=== PATIENT | female | born 1970 | race Asian ===

== ENCOUNTER → 2018-05-08 07:48 | Outpatient (CLI) | payer OTHER, SELFPAY ==
[2018-05-08 08:41] LABS: Add Manual Diff / Slide Review NO; Basophils Percent Auto 0.4 % (0-2); Hematocrit 35.6 % (36-46); Hemoglobin 11.3 g/dL (12.0-16.0); Lymphocytes Percent Auto 28.9 % (25-40); Mean Corpuscular HGB Conc 31.6 % (30-36); Mean Corpuscular Hemoglobin 19.9 PG (26-34); Mean Corpuscular Volume 63.1 fL (80-100); Monocytes Percent Auto 8.8 % (3-14); Neutrophils Absolute Auto 4400 /uL (3000-5900); Neutrophils Percent Auto 52.9 % (50-75); Platelet Count 357 X10^3/uL (150-400); Red Blood Cell Count 5.65 X10^6/uL (4.0-5.2); Red Cell Distribution Width 14.9 % (11.6-14.8); White Blood Cell Count 8.3 X10^3/uL (4.5-11.0)
[2018-05-08 09:07] LABS: Anisocytosis 1+; Microcytosis 2+; Poikilocytosis 1+
[2018-05-08 09:10] LABS: Alanine Aminotransferase 21 IU/L (9-52); Albumin Globulin Ratio 1.2 (1.0-2.8); Alkaline Phosphatase 47 U/L (38-126); Aspartate Aminotransferase 20 IU/L (14-36); BUN Creatinine Ratio 13.3 (6-22); Bilirubin Total 0.7 mg/dL (0.2-1.3); Blood Urea Nitrogen 8 mg/dL (7-17); Carbon Dioxide 31 mmol/L (22-32); Chloride 105 mmol/L (98-107); Cholesterol 172 mg/dL (140-199); Estimated Glomerular Filt Rate > 60.0 mL/min (>60); Globulin 3.3 g/dL (1.7-4.1); Glucose 96 mg/dL (70-100); HDL Cholesterol 54 mg/dL (40-60); HEMOLYSIS < 15 (0-50); LDL Cholesterol Calculated 91 mg/dL (<100); Potassium 4.4 mmol/L (3.4-5.1); Sodium 143 mmol/L (137-145); Total Protein 7.3 g/dL (6.3-8.2); Triglycerides 133 mg/dL (35-150)
[2018-05-08 09:35] LABS: TSH w/ Reflex to FT4 1.28 uIU/mL (0.47-4.68)
== END ==
PROVIDERS: PCP Family Medicine; Visit Provider Family Medicine
DX: Z00.00 Encounter for general adult medical examination without abnormal findings (principal)
CPT/HCPCS: 36415; 80053; 80061; 84443; 85025

== ENCOUNTER → 2018-06-09 14:45 | Outpatient (CLI) | payer OTHER, SELFPAY ==
--- NOTE | 2018-06-09 14:46 | DI.US.S_ITS ---
ULTRASOUND OF LEFT BREAST: 06/09/2018 CLINICAL: Palpable left breast lump. [facility] of the left breast was performed on the areas of interest. Ceja scale images of the real-time examination were reviewed. There is a 2.7 cm x 2.1 cm x 2.6 cm irregular cyst in the left breast at 3 o'clock anterior depth. This irregular cyst is anechoic with posterior acoustic enhancement. This correlates as palpated. IMPRESSION: BENIGN There is no sonographic evidence of malignancy. The 2.7 cm x 2.1 cm x 2.6 cm irregular cyst in the left breast is benign. A 1 year screening mammogram is recommended. This exam was interpreted at Station ID: [id number]. Electronically Signed By: Jenny Jones M.D. lk/:06/09/2018 16:23:37 letter sent: Normal Exam Ultrasound BI-RADS: 2 Benign
--- NOTE | 2018-06-09 14:46 | DI.MG.S_ITS ---
BILATERAL DIGITAL DIAGNOSTIC MAMMOGRAM 3D/2D: 06/09/2018 CLINICAL: Left lump with tenderness. Baseline. No prior exams were available for comparison. The tissue of both breasts is extremely dense, which lowers the sensitivity of mammography. There is a 2.2 cm oval mass in the left breast at 5 o'clock middle depth. This correlates as palpated. No other significant masses, calcifications, or other findings are seen in either breast. IMPRESSION: INCOMPLETE: NEEDS ADDITIONAL IMAGING EVALUATION The 2.2 cm oval mass in the left breast likely represents a cyst and is indeterminate. A targeted ultrasound of the right breast is recommended and will be performed immediately following this exam. This exam was interpreted at Station ID: [id number]. NOTE: For mammograms, a report in lay terms will be sent to the patient. Approximately 15% of breast malignancies will not be visualized mammographically. In the management of a palpable breast mass, a negative mammogram must not discourage biopsy of a clinically suspicious lesion. Electronically Signed By: Jenny Jones M.D. lk/:06/09/2018 15:26:38 letter sent: Additional Imaging Needed ACR BI-RADS Category 0: Incomplete 3340F
== END ==
PROVIDERS: Family Provider Family Medicine; PCP Family Medicine; Visit Provider Family Medicine
DX: R92.8 Other abnormal and inconclusive findings on diagnostic imaging of breast (principal); N60.02 Solitary cyst of left breast
CPT/HCPCS: 76642; 77066; G0279

== ENCOUNTER → 2019-05-18 14:38 | Outpatient (CLI) | payer OTHER, SELFPAY ==
--- NOTE | 2019-05-18 14:39 | DI.MG.S_ITS ---
BILATERAL DIGITAL DIAGNOSTIC MAMMOGRAM 3D/2D: 05/18/2019 CLINICAL: Left breast lump. Comparison is made to exam dated: 06/09/2018 [facility]. The tissue of both breasts is extremely dense, which lowers the sensitivity of mammography. There is an oval equal density cyst with an obscured and circumscribed margin in the left breast at 4 o'clock middle depth. This is not significantly changed and correlates as palpated. No other significant masses, calcifications, or other findings are seen in either breast. IMPRESSION: INCOMPLETE: NEEDS ADDITIONAL IMAGING EVALUATION The oval equal density cyst in the left breast is indeterminate. An ultrasound is recommended. This exam was interpreted at Station ID: [id number]. NOTE: For mammograms, a report in lay terms will be sent to the patient. Approximately 15% of breast malignancies will not be visualized mammographically. In the management of a palpable breast mass, a negative mammogram must not discourage biopsy of a clinically suspicious lesion. Electronically Signed By: Ren connolly/joe:05/18/2019 15:56:05 ACR BI-RADS Category 0: Incomplete 3340F
--- NOTE | 2019-05-18 14:39 | DI.US.S_ITS ---
LIMITED ULTRASOUND OF LEFT BREAST: 05/18/2019 CLINICAL: Palpable left breast lump. Comparison is made to exams dated: 05/18/2019 mammogram, 06/09/2018 ultrasound, and 06/09/2018 mammogram - [facility]. Color flow and real-time ultrasound of the left breast 3 o'clock region were performed on the areas of interest. There is a benign 3.2 cm x 3.1 cm x 2.1 cm oval cyst with a smooth internal wall in the left breast at 3 o'clock middle depth. This oval cyst is anechoic with a well-defined boundary and posterior acoustic enhancement. This abnormality is increased in size and correlates as palpated and with mammography findings. Color flow imaging demonstrates that there is no vascularity present. IMPRESSION: BENIGN There is no sonographic evidence of malignancy. The 3.2 cm x 3.1 cm x 2.1 cm oval cyst in the left breast is consistent with a simple cyst and is benign. If clinically indicated, ultrasound guided cyst aspiration may be performed for symptomatic relief. A 1 year screening mammogram is recommended. This exam was interpreted at Station ID: [id number]. Electronically Signed By: Ren Smith M.D. ddrand/:05/19/2019 08:32:50 letter sent: Clinical Evaluation Ultrasound BI-RADS: 2 Benign
== END ==
PROVIDERS: Family Provider Family Medicine; PCP Family Medicine; Visit Provider Nurse Practitioner
DX: R92.8 Other abnormal and inconclusive findings on diagnostic imaging of breast (principal); N60.02 Solitary cyst of left breast
CPT/HCPCS: 76642; 77066; G0279

== ENCOUNTER → 2020-11-15 16:44 | Outpatient (CLI) | payer OTHER, SELFPAY ==
--- NOTE | 2020-11-15 16:47 | DI.MG.S_ITS ---
BILATERAL DIGITAL SCREENING MAMMOGRAM 3D/2D WITH CAD: 11/15/2020 CLINICAL: Routine screening. Comparison is made to exams dated: 05/18/2019 mammogram and 06/09/2018 mammogram - [facility]. The tissue of both breasts is extremely dense, which lowers the sensitivity of mammography. Current study was also evaluated with a Computer Aided Detection (CAD) system. No significant masses, calcifications, or other findings are seen in either breast. There has been no significant interval change. IMPRESSION: NEGATIVE There is no mammographic evidence of malignancy. A 1 year screening mammogram is recommended. This exam was interpreted at Station ID: [id number]. NOTE: For mammograms, a report in lay terms will be sent to the patient. Approximately 15% of breast malignancies will not be visualized mammographically. In the management of a palpable breast mass, a negative mammogram must not discourage biopsy of a clinically suspicious lesion. Electronically Signed By: Dakota whitehead/joe:11/16/2020 07:44:22 letter sent: Normal Exam ACR BI-RADS Category 1: Negative 3341F
== END ==
PROVIDERS: Family Provider Family Medicine; PCP Family Medicine; Referring Provider Family Medicine; Visit Provider Family Medicine
DX: Z12.31 Encounter for screening mammogram for malignant neoplasm of breast (principal)
CPT/HCPCS: 77063; 77067

== ENCOUNTER → 2021-06-15 07:39 | Outpatient (CLI) | payer OTHER, SELFPAY ==
[2021-06-15 08:13] LABS: Add Manual Diff / Slide Review NO; Basophils Absolute Auto 100 /uL (0-100); Basophils Percent Auto 1.2 % (0-2); Eosinophils Absolute Auto 300 /uL (0-450); Eosinophils Percent Auto 5.6 % (2-4); Hematocrit 29.3 % (36-46); Hemoglobin 9.1 g/dL (12.0-16.0); Lymphocytes Absolute Auto 2000 /uL (1100-4500); Lymphocytes Percent Auto 40.1 % (25-40); Mean Corpuscular HGB Conc 31.2 % (30-36); Mean Corpuscular Hemoglobin 18.6 PG (26-34); Mean Corpuscular Volume 59.8 fL (80-100); Monocytes Absolute Auto 400 /uL (0-900); Monocytes Percent Auto 8.9 % (3-14); Neutrophils Absolute Auto 2200 /uL (1500-7000); Neutrophils Percent Auto 44.2 % (50-75); Platelet Count 408 X10^3/uL (150-400)
[2021-06-15 08:36] LABS: Hypochromasia 2+; Microcytosis 2+; Poikilocytosis 1+; Target Cells 1+
[2021-06-15 08:38] LABS: Alanine Aminotransferase 15 IU/L (<35); Albumin 4.3 g/dL (3.5-5.0); Albumin Globulin Ratio 1.5 (1.0-2.8); Alkaline Phosphatase 44 U/L (38-126); Aspartate Aminotransferase 21 IU/L (14-36); BUN Creatinine Ratio 15.5 (6-22); Bilirubin Total 0.6 mg/dL (0.2-1.3); Blood Urea Nitrogen 11 mg/dL (7-17); Calcium 9.4 mg/dL (8.4-10.2); Carbon Dioxide 28 mmol/L (22-32); Chloride 104 mmol/L (98-107); Cholesterol 207 mg/dL (140-199); Estimated Glomerular Filt Rate > 60.0 mL/min (>60); Globulin 2.9 g/dL (1.7-4.1); Glucose 102 mg/dL (70-100); HDL Cholesterol 68 mg/dL (40-60); HEMOLYSIS < 15 (0-50); LDL Cholesterol Calculated 122 mg/dL (<100); Potassium 4.3 mmol/L (3.4-5.1); Sodium 139 mmol/L (137-145); Total Protein 7.2 g/dL (6.3-8.2); Triglycerides 85 mg/dL (35-150)
== END ==
PROVIDERS: Physician Assistant; Family Provider Family Medicine; PCP Family Medicine; Referring Provider Family Medicine; Visit Provider Family Medicine
DX: D56.0 Alpha thalassemia (principal); Z13.6 Encounter for screening for cardiovascular disorders
CPT/HCPCS: 36415; 80053; 80061; 85025

== ENCOUNTER → 2021-10-20 09:13 | Outpatient (CLI) | payer OTHER, SELFPAY ==
[2021-10-20 10:06] LABS: Add Manual Diff / Slide Review NO; Basophils Absolute Auto 100 /uL (0-100); Basophils Percent Auto 1.8 % (0-2); Eosinophils Absolute Auto 300 /uL (0-450); Eosinophils Percent Auto 6.4 % (2-4); Hematocrit 27.9 % (36-46); Hemoglobin 8.6 g/dL (12.0-16.0); Lymphocytes Absolute Auto 1200 /uL (1100-4500); Lymphocytes Percent Auto 25.3 % (25-40); Mean Corpuscular Hemoglobin 19.4 PG (26-34); Mean Corpuscular Volume 62.7 fL (80-100); Monocytes Absolute Auto 400 /uL (0-900); Monocytes Percent Auto 9.8 % (3-14); Neutrophils Absolute Auto 2600 /uL (1500-7000); Neutrophils Percent Auto 56.7 % (50-75); Platelet Count 356 X10^3/uL (150-400); Red Blood Cell Count 4.45 X10^6/uL (4.0-5.2); White Blood Cell Count 4.6 X10^3/uL (4.5-11.0)
[2021-10-20 10:15] LABS: Alanine Aminotransferase 11 IU/L (<35); Albumin 3.9 g/dL (3.5-5.0); Albumin Globulin Ratio 1.3 (1.0-2.8); Alkaline Phosphatase 38 U/L (38-126); Aspartate Aminotransferase 19 IU/L (14-36); BUN Creatinine Ratio 13.2 (6-22); Bilirubin Total 0.7 mg/dL (0.2-1.3); Blood Urea Nitrogen 7 mg/dL (7-17); Calcium 8.8 mg/dL (8.4-10.2); Carbon Dioxide 29 mmol/L (22-32); Chloride 108 mmol/L (98-107); Cholesterol 150 mg/dL (140-199); Estimated Glomerular Filt Rate > 60.0 mL/min (>60); Globulin 2.9 g/dL (1.7-4.1); Glucose 104 mg/dL (70-100); HDL Cholesterol 48 mg/dL (40-60); HEMOLYSIS < 15 (0-50); LDL Cholesterol Calculated 84 mg/dL (<100); Potassium 4.2 mmol/L (3.4-5.1); Sodium 139 mmol/L (137-145); Total Protein 6.8 g/dL (6.3-8.2); Triglycerides 92 mg/dL (35-150)
[2021-10-20 10:44] LABS: Anisocytosis 1+; Hypochromasia 2+; Microcytosis 2+; Ovalocytes 1+
[2021-10-20 10:47] LABS: Thyroid Stimulating Hormone < 0.015 uIU/mL (0.47-4.68)
[2021-10-22 17:19] LABS: Ferritin 26 ng/mL (6-137)
== END ==
PROVIDERS: PCP Family Medicine; Referring Provider Family Medicine; Visit Provider Family Medicine
DX: D50.9 Iron deficiency anemia, unspecified (principal); N92.0 Excessive and frequent menstruation with regular cycle; R53.83 Other fatigue
CPT/HCPCS: 36415; 80053; 80061; 82728; 84443; 85025

== ENCOUNTER 2021-11-07 14:16 | Emergency (ER) | payer OTHER, SELFPAY ==
[2021-11-07 14:20] VITALS: BP 126/79; PULSE 86; RESP 18; TEMP 36.6; O2SAT 99; BMI 24.5
[2021-11-07 14:48] LABS: Add Manual Diff / Slide Review NO; Basophils Absolute Auto 0 /uL (0-100); Basophils Percent Auto 0.7 % (0-2); Eosinophils Absolute Auto 200 /uL (0-450); Eosinophils Percent Auto 4.2 % (2-4); Hematocrit 29.7 % (36-46); Hemoglobin 9.4 g/dL (12.0-16.0); Lymphocytes Absolute Auto 1500 /uL (1100-4500); Lymphocytes Percent Auto 25.8 % (25-40); Mean Corpuscular HGB Conc 31.8 % (30-36); Mean Corpuscular Hemoglobin 19.8 PG (26-34); Mean Corpuscular Volume 62.4 fL (80-100); Monocytes Absolute Auto 400 /uL (0-900); Monocytes Percent Auto 7.8 % (3-14); Neutrophils Absolute Auto 3500 /uL (1500-7000); Neutrophils Percent Auto 61.5 % (50-75); Platelet Count 384 X10^3/uL (150-400); Red Blood Cell Count 4.75 X10^6/uL (4.0-5.2); Red Cell Distribution Width 16.4 % (11.6-14.8); White Blood Cell Count 5.7 X10^3/uL (4.5-11.0)
[2021-11-07 14:49] LABS: Appearance Urine UA SL CLOUDY; Bilirubin Urine UA NEGATIVE (NEGATIVE); Color Urine UA YELLOW; Glucose Urine UA NEGATIVE (Negative); Ketones Urine UA NEGATIVE (NEGATIVE); Leukocyte Esterase Urine UA TRACE (NEGATIVE); Nitrite Urine UA NEGATIVE (Negative); Occult Blood Urine UA 3+ (Negative); Protein Urine UA 1+ (Negative); Specific Gravity Urine UA 1.015 (1.000-1.035); Urobilinogen Urine UA 0.2 E.U./dL (0.2)
[2021-11-07 14:56] LABS: RBC Urine 30-100/HPF (0-5/HPF)
[2021-11-07 14:57] LABS: Bacteria Urine None Seen; Culture Indicated Urine Specimen Cultured; Squamous Epithelial Cell Urine 0-1 /HPF (0-5/HPF); WBC Urine 1-5/HPF (0-5/HPF)
[2021-11-07 14:58] LABS: BUN Creatinine Ratio 15.3 (6-22); Blood Urea Nitrogen 9 mg/dL (7-17); Calcium 8.7 mg/dL (8.4-10.2); Carbon Dioxide 26 mmol/L (22-32); Chloride 104 mmol/L (98-107); Estimated Glomerular Filt Rate > 60.0 mL/min (>60); Glucose 129 mg/dL (70-100); HEMOLYSIS < 15 (0-50); Potassium 3.5 mmol/L (3.4-5.1); Sodium 137 mmol/L (137-145)
[2021-11-07 15:15] LABS: Hypochromasia 2+; Microcytosis 2+
--- NOTE | 2021-11-07 15:43 | DI.US.S_ITS ---
PROCEDURE: US PELVIC COMPLETE INDICATIONS: EXCESSIVE VAGINAL BLEEDING TECHNIQUE: Real-time scanning was performed of the pelvic organs, with image documentation. Additional endovaginal scanning was necessary due to incomplete visualization of the adnexal and endometrial structures by transabdominal scanning. COMPARISON: None. FINDINGS: Uterus: Uterus is retroverted and normal in size at 8.6 x 5.1 x 7.9 cm. The endometrial stripe is poorly defined and measures approximately 10 mm in thickness. Hypoechoic uterine lesions are seen, which are attributed to fibroids. They measure as follows: Right anterior uterus, subserosal, 1.3 x 1.5 x 1.1 cm Mid uterus, intramural, 1.2 x 1.8 x 1.3 cm Ovaries: The right ovary measures 3.9 x 3.1 x 2.5 cm and demonstrates physiologic appearing cysts. There is also a 1.6 cm partially calcified region the right ovary. The left ovary measures 2.5 x 1.3 x 1.3 cm. The left ovary is overall not well seen, secondary to overlying bowel gas. No adnexal masses are seen. Normal appearing arterial waveforms are confirmed to each ovary. Other: A mild amount of free pelvic fluid is seen, which is considered to be within physiologic limits. IMPRESSION: Defined endometrial stripe. Please consider adenomyosis. There is an apparent partially calcified region within the right ovary that measures up to 16 mm. When clinically appropriate, please consider a follow-up gynecological protocol MRI for further evaluation (assuming that there is no contraindication). We strive to produce accurate, complete, and clear reports of imaging services. To assist us in improving patient care, this report was composed using standard report templates and voice recognition software. Therefore, it may contain abnormal punctuation, insertions and/or omissions. Occasional wrong-word or sound-alike substitutions may occur. Though we review the report and make efforts to correct it, we do recommend that the report be read carefully in proper context to recognize any text inaccuracies. Dictated by: Baldemar Carrion M.D. on 11/07/2021 at 16:05 Approved by: Baldemar Carrion M.D. on 11/07/2021 at 16:08
--- NOTE | 2021-11-07 15:44 | ED_ITS ---
HPI - General Adult General Chief complaint: Vaginal Bleeding Stated complaint: excessive vaginal bleeding Time Seen by Provider: 11/07/21 15:36 Source: patient Mode of arrival: Ambulatory History of Present Illness HPI narrative: 51-year-old female who is here for evaluation of approximately 2 days of vaginal bleeding. She states she has been soaking through a tampon every couple hours. She does have a history of iron deficiency anemia. She is currently on iron. She is scheduled to see a systems checkout mechanic tomorrow to discuss potential iron infusions. Over the past 2 year she has been somewhat irregular with her menstrual cycles. She is not currently on control. No urinary symptoms. No fevers. Related Data Home Medications Medication Instructions Recorded Confirmed magnesium oxide 400 mg (241.3 mg 400 mg PO DAILY tab 05/14/18 11/06/21 magnesium) tablet ibuprofen 200 mg tablet 400 mg PO Q6H PRN 07/24/21 11/06/21 cholecalciferol (vitamin D3) 25 PO DAILY 09/03/21 11/06/21 mcg (1,000 unit) tablet (Vitamin D3) Previous Rx's Medication Instructions Recorded alprazolam 0.5 mg tablet 0.25 mg PO DAILY #10 tab 06/20/21 zolpidem 5 mg tablet (Ambien) 5 mg PO BEDTIME PRN #30 tab 06/20/21 ferrous sulfate 325 mg (65 mg 325 mg PO TID #90 tab 07/24/21 iron) tablet Allergies Allergy/AdvReac Type Severity Reaction Status Date / Time diazepam [DIAZEPAM] AdvReac Mild NAUSEA Verified 11/07/21 14:26 Review of Systems Constitutional Constitutional: Reports as per HPI and Reports system reviewed and no additional complaints, except as documented Gastrointestinal Gastrointestinal: Reports as per HPI and Reports system reviewed and no ad ditional complaints, except as documented Genitourinary Genitourinary: Reports system reviewed and no additional complaints, except as documented Integumentary/Breasts Skin/Breast: Reports system reviewed and no additional complaints, except as documented Neurologic Neurologic: Reports system reviewed and no additional complaints, except as documented Hematologic/Lymphatic On Anticoagulants: No Patient History Medical History Anxiety (~2006) Chicken pox (~1993) Vertigo (~2015) Surgical History (Updated 07/03/21 @ 10:32 by Calvin Sims MD) Anesthesia History of third molar tooth extraction (~1991) Family History Mother No problems noted. Social History marital status: Smoking Status: Never smoker alcohol intake: current (on occasion) Smoking Status: Never smoker alcohol intake frequency: 3 or more drinks per day Substance Use Type: does not use Exam Initial Vital Signs Initial Vital Signs: Vital Signs Temperature 97.9 F 11/07/21 14:20 Pulse Rate 86 11/07/21 14:20 Respiratory Rate 18 11/07/21 14:20 Blood Pressure 126/79 11/07/21 14:20 Pulse Oximetry 99 11/07/21 14:20 HENMT Head: normal to inspection and normocephalic Resp Effort & Inspection: normal respiratory effort Cardio Rate: regular rate GI Inspection: normal to inspection, non-distended and no incisions Skin General: no rashes or lesions noted Neuro General: patient alert, patient awake, patient oriented x3 and moves all extremities Course Orders Ordered: ED Orders 11/07/21 14:30 Urinalysis and Microscopic Stat Urine Culture Stat 11/07/21 14:40 Basic Metabolic Panel Stat Complete Blood Count AUTO DIFF Stat 11/07/21 15:43 US pelvic complete Stat Vital Signs Vital signs: Vital Signs - 8 hr 11/07/21 14:20 11/07/21 17:35 Temperature 97.9 F Pulse Rate 86 74 Respiratory Rate 18 18 Blood Pressure 126/79 120/75 Pulse Oximetry 99 99 Medical Decision Making Medical Records Medical records reviewed: Yes I reviewed the patient's medical records. Lab Data Lab results reviewed: Yes I reviewed the patient's lab results. Result diagrams: 11/07/21 14:40 11/07/21 14:40 Labs: Lab Results 11/07/21 11/07/21 11/07/21 Range/Units 14:30 14:40 14:40 WBC 5.7 (4.5-11.0) X10^3/uL RBC 4.75 (4.0-5.2) X10^6/uL Hgb 9.4 L (12.0-16.0) g/dL Hct 29.7 L (36-46) % MCV 62.4 L (80-100) fL MCH 19.8 L (26-34) PG MCHC 31.8 (30-36) % RDW 16.4 H (11.6-14.8) % Plt Count 384 (150-400) X10^3/uL Neut % (Auto) 61.5 (50-75) % Lymph % (Auto) 25.8 (25-40) % [place] % (Auto) 7.8 (3-14) % Eos % (Auto) 4.2 H (2-4) % Baso % (Auto) 0.7 (0-2) % Neut # (Auto) 3500 (5322-2455) /uL Lymph # (Auto) 1500 (4251-0781) /uL [place] # (Auto) 400 (0-900) /uL Eos # (Auto) 200 (0-450) /uL Baso # (Auto) 0 (0-100) /uL RBC Morphology Not Reportable Hypochromasia 2+ H Microcytosis 2+ H Sodium 137 (137-145) mmol/L Potassium 3.5 (3.4-5.1) mmol/L Chloride 104 (98-107) mmol/L Carbon Dioxide 26 (22-32) mmol/L BUN 9 (7-17) mg/dL Creatinine 0.59 (0.52-1.04) mg/dL Estimated GFR > 60.0 (>60) mL/min BUN/Creatinine Ratio 15.3 (6-22) Glucose 129 H (70-100) mg/dL Calcium 8.7 (8.4-10.2) mg/dL Urine Color Yellow Urine Appearance Sl cloudy Urine pH 6.0 (4.5-8.0) Ur Specific [place] 1.015 (1.000-1.035) Urine Protein 1+ H (Negative) Urine Glucose (UA) Negative (Negative) g/dL Urine Ketones Negative (NEGATIVE) Urine Occult Blood 3+ H (Negative) Urine Nitrate Negative (Negative) Urine Bilirubin Negative (NEGATIVE) Urine Urobilinogen 0.2 (0.2) E.U./dL Ur Leukocyte Esterase Trace H (NEGATIVE) Urine RBC 30-100/hpf H (0-5/HPF) Urine WBC 1-5/hpf (0-5/HPF) Ur Squamous Epith Cells 0-1 /hpf (0-5/HPF) Urine Bacteria None seen (None) Ur Culture Indicated? Specimen cultured Point of Care Testing Test Results Negative Point of care testing: Point of Care Testing Test Results Negative Imaging Data US - FILM READER: Radiologist's Impression: [address] [address] Ultrasound Report Signed Patient: Madan Hui MR#: [id number] : 1970 Acct:[id number] Age/Sex: 51 / F Date of Service: 11/07/21 Loc: ED Accession Number: [id number] ?? Procedure: US pelvic complete Ordering Provider: Bob Herrera D.O. PROCEDURE:? US PELVIC COMPLETE ? INDICATIONS:? EXCESSIVE VAGINAL BLEEDING ? TECHNIQUE:? Real-time scanning was performed of the pelvic organs, with image documentation.? Additional endovaginal scanning was necessary due to incomplete visualization of the adnexal and endometrial structures by transabdominal scanning.? ? COMPARISON:? None. ? FINDINGS:? ?? Uterus:? Uterus is retroverted and normal in size at 8.6 x 5.1 x 7.9 cm. ? The endometrial stripe is poorly defined and measures approximately 10 mm in thick ness. Hypoechoic uterine lesions are seen, which are attributed to fibroids. They measure as follows: ? Right anterior uterus, subserosal, 1.3 x 1.5 x 1.1 cm Mid uterus, intramural, 1.2 x 1.8 x 1.3 cm ? Ovaries:? The right ovary measures 3.9 x 3.1 x 2.5 cm and demonstrates physiologic appearing cysts.? There is also a 1.6 cm partially calcified region the right ovary.? ? The left ovary measures 2.5 x 1.3 x 1.3 cm.? The left ovary is overall not well seen, secondary to overlying bowel gas. ? No adnexal masses are seen. Normal appearing arterial waveforms are confirmed to each ovary.? ? Other:? A mild amount of free pelvic fluid is seen, which is considered to be within physiologic limits.? ? ? IMPRESSION:? Defined endometrial stripe.? Please consider adenomyosis. ? There is an apparent partially calcified region within the right ovary that measures up to 16 mm. ? When clinically appropriate, please consider a follow-up gynecological protocol MRI for further evaluation (assuming that there is no contraindication).? ? ? We strive to produce accurate, complete, and clear reports of imaging services. To assist us in improving patient care, this report was composed using standard report templates and voice recognition software. Therefore, it may contain abnormal punctuation, insertions and/or omissions. Occasional wrong-word or sound-alike substitutions may occur. Though we review the report and make efforts to correct it, we do recommend that the report be read carefully in proper context to recognize any text inaccuracies. ? ? Dictated by: Baldemar Carrion M.D. on 11/07/2021 at 16:05 ? ? Approved by: Baldemar Carrion M.D. on 11/07/2021 at 16:08? MDM Narrative Medical decision making narrative: Patient is anemic but not to the point where she would require transfusion. Exam unremarkable. Ultrasound shows fibroids and other findings that could be consistent with because of her presenting symptoms today. We did discuss starting on control for hormone regulation over the patient would like to hold on this for now. Will have her continue to keep her appointment with Hematology tomorrow. She was given return precautions. She expressed understanding and agreement. Discharge Plan Departure Patient Disposition: Home Clinical Impression: Vaginal bleeding Instructions: DI for Vaginal Bleeding Activity Restrictions/Additional Instructions: Do recommend that you continue to take all of your medications as directed and keep all of your scheduled medical appointments. Please return to the emergency department for any new or worsening symptoms. Prescriptions: No Action alprazolam 0.5 mg tablet 0.25 mg PO DAILY Qty: 10 0RF Rx Instructions: 1/2 to 1 tab by mouth once as needed for anxiety related to flying, MR x1 if ineffective. zolpidem [Ambien] 5 mg tablet 5 mg PO BEDTIME PRN (Reason: insomnia) Qty: 30 0RF magnesium oxide 400 mg tablet 400 mg PO DAILY 0RF ibuprofen 200 mg Tablet 400 mg PO Q6H PRN (Reason: Pain (Scale Score 4-6)) 0RF ferrous sulfate 325 mg (65 mg iron) Tablet 325 mg PO TID Qty: 90 1RF cholecalciferol (vitamin D3) [Vitamin D3] 25 mcg (1,000 unit) Tablet PO DAILY 0RF Referrals: Gabe Gamble MD [Primary Care Provider] -
[2021-11-07 17:35] VITALS: BP 120/75; PULSE 74; RESP 18; O2SAT 99
== END 2021-11-07 17:36 | disposition home or self-care (01) ==
PROVIDERS: Emergency Provider Emergency Medicine; PCP Family Medicine
DX: N93.9 Abnormal uterine and vaginal bleeding, unspecified (principal); D64.9 Anemia, unspecified
CPT/HCPCS: 36415; 76830; 76856; 80048; 81001; 81025; 85025; 87077; 87086; 99283; 99284

== ENCOUNTER → 2022-02-14 14:39 | Outpatient (CLI) | payer OTHER, SELFPAY ==
[2022-02-14 16:17] LABS: COVID19 -Nasal RAPID Negative (Negative)
== END ==
PROVIDERS: PCP Family Medicine; Visit Provider Obstetrics & Gynecology
DX: Z20.822 Contact with and (suspected) exposure to COVID-19 (principal); Z01.812 Encounter for preprocedural laboratory examination
CPT/HCPCS: 87635

== ENCOUNTER 2022-02-15 10:36 | Day surgery (SDC) | payer OTHER, SELFPAY ==
[2022-02-14 13:06] VITALS: BMI 24.5
[2022-02-15] VITALS (7 sets, daily range): BP systolic 116–139; BP diastolic 74–87; PULSE 46–84; RESP 12–18; TEMP 36.2–36.3; O2SAT 100; BMI 24.5
[2022-02-15] MEDS: LACTATED RINGERS 1,000 ML 100 ML IV (10:59)
--- NOTE | 2022-02-15 11:13 | PM.PREOP ---
Pre-operative Note COVID-19 COVID-19 status: Negative Result date/Date tested (Pos, Neg/Pending): 02/14/22 Criteria for continued procedure: Non-surgical alternatives not available or appropriate per current SOC Interval Note History & Physical reviewed/Exam performed by Physician: Yes Changes to H&P: No
--- NOTE | 2022-02-15 11:47 | SUR.OPER ---
Lithotomy on padded OR bed, head on pillow, arms secured on padded arm boards at <90 degrees abduction. Legs secured in padded yellow fins stirrups.
--- NOTE | 2022-02-15 12:37 | PM.OP.1 ---
Operative Date/Time/Diagnoses Date of procedure: 02/15/22 Time of procedure: 12:00 Pre-op diagnosis: menorrhagia Post-op diagnosis: same Procedure & Clinicians Procedure: diagnostic hysteroscopy, Novasure endometrial ablation Same procedure as scheduled: No (hysteroscopy added) Indications: menorrhagia Surgeon: Emma Harman Supervisor Hot Dip Plating: Ledy Lund Anesthesia Type: Sedation Operative Notes Findings: Retroverted, retroflexed, mildly arcuate uterus. Normal vulva and vagina, normal cervix. Specimen(s): none sent Estimated Blood Loss (mL): 20 Procedure in detail: After informed consent was obtained and a test was negative, the patient was transferred to the operating room having voided en route. IV sedation was obtained. She was prepped and draped in the usual sterile fashion. A speculum was placed in the vagina, and the cervix visualized and grasped on the anterior lip with a single toothed tenaculum. Hegar dilators were used to dilate the cervix to 8mm, but with significant difficulty dilating the internal os. The decision was made to proceed with a diagnostic hysteroscopy, but since only an operative hysteroscope was available, the cervix was further dilated to 10mm with difficulty after the hysteroscope could not be advanced through the internal os. A hysteroscopy could be performed after this additional dilation. Both ostia were visualized with a mildly arcuate fundus noted, with no signs of uterine perforation. The novasure sound was then used to measure the uterine cavity to 4cm. The Novasure device was inserted through the cervix, now with ease given the prior dilation, and advanced to the fundus. It was then deployed in the usual fashion, the speculum removed, and the device rotated, withdrawn 0.5cm and re-advanced to ensure proper seating. A cavity assessment was performed and passed. The endometrial ablation was then successfully performed. The Novasure was withdrawn and removed from the uterus, and the tenaculum removed with spontaneous hemostasis noted. The patient tolerated the procedure well and was taken to the PACU in stable condition. All counts were correct. IVF: 800ccs LR Cavity length: 4cm Cavity width: 2.5cm power level 55W Ablation time: 68 seconds Complications: none Post-operative Condition: stable Disposition: PACU Plan for aftercare: Routine postop care.
--- NOTE | 2022-02-15 13:27 | SUR.PHASEII ---
Pt dressed, ready to go, became nauseated, VS taken, HR low, Dr. Null made aware.
[2022-02-15] MEDS: ONDANSETRON 4 MG ODT SL (13:33)
--- NOTE | 2022-02-15 14:29 | SUR.PHASEII ---
Late entry: Pt medicated with Ondansetron ODT. Pt felt better soon after, Dr. Zhang and Dr. Harman spoke with pt at bedside. Pt felt better an left unit in stable condition.
== END 2022-02-15 13:50 | disposition home or self-care (01) ==
PROVIDERS: PCP Family Medicine; Referring Provider Obstetrics & Gynecology; Visit Provider Obstetrics & Gynecology
PROC: 0U5B8ZZ Destruction of Endometrium, Via Natural or Artificial Opening Endoscopic (ICD-10-PCS; CPT 58563; principal; 2022-02-15 12:00)
DX: N92.0 Excessive and frequent menstruation with regular cycle (principal)
CPT/HCPCS: 58563; 81025; 82962; J1100; J1885; J2250; J2405; J2704; J3010

== ENCOUNTER → 2022-07-25 14:26 | Outpatient (CLI) | payer OTHER, SELFPAY ==
--- NOTE | 2022-07-25 | DI.MG.S_ITS ---
BILATERAL DIGITAL SCREENING MAMMOGRAM 3D/2D WITH CAD: 07/25/2022 CLINICAL: Routine screening. Comparison is made to exams dated: 11/15/2020 mammogram, 05/18/2019 mammogram, and 06/09/2018 mammogram - [facility]. Both breasts are extremely dense, which lowers the sensitivity of mammography (category d />75% glandular tissue). Current study was also evaluated with a Computer Aided Detection (CAD) system. No significant masses, calcifications, or other findings are seen in either breast. There has been no significant interval change. IMPRESSION: NEGATIVE There is no mammographic evidence of malignancy. A 1 year screening mammogram is recommended. Based on the Tyrer Cuzick model (a risk assessment model) the patient's lifetime risk is 14.8% and her 10 year risk is 3.4%. According to the ACR, ACS, and NCCN guidelines, an annual breast MRI exam along with mammogram is recommended if the patient's lifetime risk is 20% or greater. This exam was interpreted at Station ID: [id number]. NOTE: For mammograms, a report in lay terms will be sent to the patient. Approximately 15% of breast malignancies will not be visualized mammographically. In the management of a palpable breast mass, a negative mammogram must not discourage biopsy of a clinically suspicious lesion. Electronically Signed By: Dakota whitehead/joe:07/25/2022 15:07:04 letter sent: Normal Exam ACR BI-RADS Category 1: Negative 3341F
== END ==
PROVIDERS: PCP Family Medicine; Referring Provider Family Medicine; Visit Provider Family Medicine
DX: Z12.31 Encounter for screening mammogram for malignant neoplasm of breast (principal)
CPT/HCPCS: 77063; 77067

== ENCOUNTER → 2022-08-21 11:25 | Outpatient (CLI) | payer OTHER, SELFPAY ==
[2022-08-21 14:01] LABS: COVID19 -Nasal RAPID Negative (Negative)
== END ==
PROVIDERS: PCP Family Medicine; Visit Provider Surgery
DX: Z20.822 Contact with and (suspected) exposure to COVID-19 (principal); Z01.812 Encounter for preprocedural laboratory examination
CPT/HCPCS: 87635; C9803

== ENCOUNTER 2022-08-22 10:51 | Day surgery (SDC) | payer OTHER, SELFPAY ==
[2022-08-22 11:07] VITALS: BP 117/76; PULSE 67; RESP 16; TEMP 36.2; O2SAT 97; BMI 24.3
[2022-08-22] MEDS: LACTATED RINGERS 1,000 ML 84 ML IV (11:20)
--- NOTE | 2022-08-22 12:17 | P.HP_ITS ---
History of Present Illness History of Present Illness Date Patient Seen: 08/22/22 Time Patient Seen: 12:17 Chief complaint: SCREENING COLONOSCOPY Narrative: Alize is here for her colonoscopy. See prior office note for details. She has had no changes to her health since I saw her last. Patient History Medical History Anxiety (~2006) Chicken pox (~1993) (normal spontaneous vaginal delivery) Vertigo (~2015) Surgical History Anesthesia History of third molar tooth extraction (~1991) Family & Social History Family History Mother No problems noted. Social History: household members none Tobacco & Substance use: Smoking Status Never smoker alcohol intake current alcohol intake frequency a few times a week Substance Use Type does not use Meds Home Medications and Allergies Home Medications Medication Instructions Recorded Confirmed Type magnesium oxide 400 mg (241.3 mg 400 mg PO DAILY 05/14/18 08/22/22 History magnesium) tablet ibuprofen 200 mg tablet 400 mg PO Q6H PRN Pain (Scale 07/24/21 08/22/22 History Score 4-6) cholecalciferol (vitamin D3) 25 1,000 unit PO DAILY 09/03/21 08/22/22 History mcg (1,000 unit) tablet (Vitamin D3) alprazolam 0.5 mg tablet 0.25 mg PO DAILY #10 tabs 11/08/21 08/22/22 Rx tranexamic acid 650 mg tablet 1,300 mg PO TID 5 days #30 tabs 11/09/21 08/22/22 Rx zolpidem 5 mg tablet (Ambien) 5 mg PO BEDTIME PRN 12/10/21 08/22/22 Rx insomnia/verbal OK 12/20/21 [facility] #30 tabs sodium sul 1.479 gram-potas ch See Rx Instructions PO PER PKG DIR 07/17/22 08/22/22 Rx 0.188 gram-magnes sul 0.225 gram #24 tabs tablet (Sutab) Allergies Allergy/AdvReac Type Severity Reaction Status Date / Time diazepam [DIAZEPAM] AdvReac Mild NAUSEA Verified 08/22/22 11:03 Exam Vital Signs (past 8 hours): - 08/22/22 11:07 Temperature 97.2 F L Pulse Rate 67 Respiratory Rate 16 Blood Pressure 117/76 Pulse Oximetry 97 Oxygen Delivery Method Room Air Oxygen Delivery Method Room Air Const General: healthy appearing Assessment & Plan Assessment and plan (1) Colon cancer screening: Status: Acute Plan Reviewed the risks and benefits of colonoscopy and she would like to proceed. Time Spent With Patient Critical Care time: I spent a total of [] minutes of critical care time on this patient's care today; this time is exclusive of procedural time.
[2022-08-22 12:48] VITALS: BP 104/66; PULSE 79; RESP 16; TEMP 36.6; O2SAT 98
--- NOTE | 2022-08-22 12:48 | PM.OP.COLON ---
Operative Date/Time/Diagnoses Date of procedure: 08/22/22 Time of procedure: 12:48 Pre-op diagnosis: Colon cancer screening Post-op diagnosis: same Procedure & Clinicians Study performed: Colonoscopy Same procedure as scheduled: Yes Surgeon: Parth Marcus Procedure Notes Procedure in detail: Surgeon: Parth Marcus MD Anesthesia: Alex Trujillo MD Procedure: The patient was brought to the endoscopy suite, placed in left lateral decubitus position. The patient was connected to monitoring devices. A time-out was performed. Sedation was administered. Once the patient was adequately sedated, a digital rectal exam was performed and was normal. The scope was then inserted and advanced to the cecum where the appendiceal orifice was identified and photographed. The scope was then slowly withdrawn over greater than 6 minutes. The mucosa was thoroughly inspected. No abnormalities were noted. The scope was retroflexed in the rectum. No abnormalities noted. The scope was straightened and removed. The patient was awakened and brought to recovery. Scope withdrawal time: 6 minutes Sedation time: 17 minutes EBL: 0 Findings: Normal colon Post-procedure Recommendations: Colonoscopy in 10 years Disposition: PACU
[2022-08-22 12:58] VITALS: BP 113/67; PULSE 60; RESP 12; TEMP 36.8; O2SAT 100
[2022-08-22 13:03] VITALS: BP 122/73; PULSE 64; RESP 14; TEMP 36.7; O2SAT 100
[2022-08-22 13:11] VITALS: BP 98/60; PULSE 69; RESP 14; TEMP 36.9; O2SAT 99
[2022-08-22 13:26] VITALS: BP 119/69; PULSE 63; RESP 14; TEMP 36.9; O2SAT 100
== END 2022-08-22 13:59 | disposition home or self-care (01) ==
PROVIDERS: PCP Family Medicine; Referring Provider Surgery; Visit Provider Surgery
PROC: 0DJD8ZZ Inspection of Lower Intestinal Tract, Via Natural or Artificial Opening Endoscopic (ICD-10-PCS; CPT 45378; principal; 2022-08-22 10:30)
DX: Z12.11 Encounter for screening for malignant neoplasm of colon (principal)
CPT/HCPCS: 45378

== ENCOUNTER → 2023-07-28 14:57 | Outpatient (CLI) | payer OTHER, SELFPAY ==
--- NOTE | 2023-07-28 14:59 | DI.MG.S_ITS ---
BILATERAL DIGITAL SCREENING MAMMOGRAM 3D/2D WITH CAD: 07/28/2023 CLINICAL: Routine screening. Comparison is made to exams dated: 07/25/2022 mammogram, 11/15/2020 mammogram, and 05/18/2019 [facility]. Both breasts are extremely dense, which lowers the sensitivity of mammography (category d />75% glandular tissue). Current study was also evaluated with a Computer Aided Detection (CAD) system. No significant masses, calcifications, or other findings are seen in either breast. There has been no significant interval change. IMPRESSION: NEGATIVE There is no mammographic evidence of malignancy. A 1 year screening mammogram is recommended. Based on the Tyrer Cuzick model (a risk assessment model) the patient's lifetime risk is 14.7% and her 10 year risk is 3.5%. According to the ACR, ACS, and NCCN guidelines, an annual breast MRI exam along with mammogram is recommended if the patient's lifetime risk is 20% or greater. This exam was interpreted at Station ID: [id number]. NOTE: For mammograms, a report in lay terms will be sent to the patient. Approximately 15% of breast malignancies will not be visualized mammographically. In the management of a palpable breast mass, a negative mammogram must not discourage biopsy of a clinically suspicious lesion. Electronically Signed By: Maria De Jesus eller/joe:07/29/2023 12:07:44 letter sent: Normal Exam ACR BI-RADS Category 1: Negative [id number]
== END ==
PROVIDERS: PCP Family Medicine; Referring Provider Family Medicine; Visit Provider Family Medicine
DX: Z12.31 Encounter for screening mammogram for malignant neoplasm of breast (principal)
CPT/HCPCS: 77063; 77067

== ENCOUNTER → 2023-10-29 08:43 | Outpatient (CLI) | payer OTHER, SELFPAY ==
[2023-10-29 10:10] LABS: Cholesterol 197 mg/dL (140-199); HDL Cholesterol 54 mg/dL (40-60); LDL Cholesterol Calculated 124 mg/dL (<100); Triglycerides 94 mg/dL (35-150)
[2023-10-29 10:27] LABS: Follicle Stimulating Hormone 78.2 mIU/mL; Luteinizing Hormone 48.3 mIU/mL
[2023-10-29 10:40] LABS: TSH w/ Reflex to FT4 1.29 uIU/mL (0.47-4.68)
[2023-10-29 10:43] LABS: Estradiol, Total 29.9 pg/mL
[2023-10-29 10:45] LABS: Ferritin 98 ng/mL (11-264)
== END ==
PROVIDERS: PCP Family Medicine; Referring Provider Family Medicine; Visit Provider Family Medicine
DX: D50.9 Iron deficiency anemia, unspecified (principal); D56.0 Alpha thalassemia; N95.9 Unspecified menopausal and perimenopausal disorder
CPT/HCPCS: 36415; 80061; 82670; 82728; 83001; 83002; 84443

== ENCOUNTER → 2024-10-15 08:27 | Outpatient (CLI) | payer OTHER, SELFPAY ==
[2024-10-15 09:51] LABS: Add Manual Diff / Slide Review NO; Basophils Absolute Auto 0 /uL (0-100); Basophils Percent Auto 0.7 % (0-2); Eosinophils Absolute Auto 200 /uL (0-450); Hematocrit 32.2 % (36-46); Hemoglobin 10.1 g/dL (12.0-16.0); Lymphocytes Absolute Auto 1500 /uL (1100-4500); Lymphocytes Percent Auto 38.1 % (25-40); Mean Corpuscular HGB Conc 31.4 % (30-36); Mean Corpuscular Hemoglobin 18.9 PG (26-34); Mean Corpuscular Volume 60.4 fL (80-100); Monocytes Absolute Auto 300 /uL (0-900); Monocytes Percent Auto 7.8 % (3-14); Neutrophils Absolute Auto 2000 /uL (1500-7000); Neutrophils Percent Auto 48.4 % (50-75); Platelet Count 325 X10^3/uL (150-400); Red Blood Cell Count 5.33 X10^6/uL (4.0-5.2); Red Cell Distribution Width 15.6 % (11.6-14.8); White Blood Cell Count 4.1 X10^3/uL (4.5-11.0)
[2024-10-15 10:01] LABS: Anisocytosis 1+; Poikilocytosis 1+
[2024-10-15 10:10] LABS: Alanine Aminotransferase 12 IU/L (<35); Albumin 4.1 g/dL (3.5-5.0); Albumin Globulin Ratio 1.6 (1.0-2.8); Alkaline Phosphatase 46 U/L (38-126); Aspartate Aminotransferase 18 IU/L (14-36); BUN Creatinine Ratio 16.7 (6-22); Bilirubin Total 0.6 mg/dL (0.2-1.3); Blood Urea Nitrogen 10 mg/dL (7-17); Carbon Dioxide 24 mmol/L (22-32); Chloride 106 mmol/L (98-107); Cholesterol 191 mg/dL (140-199); Estimated Glomerular Filt Rate > 60 mL/min (>60); Globulin 2.6 g/dL (1.7-4.1); Glucose 97 mg/dL (70-100); HDL Cholesterol 51 mg/dL (40-60); HEMOLYSIS < 15 (0-50); LDL Cholesterol Calculated 130 mg/dL (<100); Potassium 4.2 mmol/L (3.4-5.1); Sodium 139 mmol/L (137-145); Total Protein 6.7 g/dL (6.3-8.2); Triglycerides 48 mg/dL (35-150)
[2024-10-15 10:40] LABS: TSH w/ Reflex to FT4 0.94 uIU/mL (0.47-4.68)
[2024-10-15 10:45] LABS: Ferritin 108 ng/mL (11-264)
--- NOTE | 2024-10-15 15:10 | DI.MG.S_ITS ---
BILATERAL DIGITAL SCREENING MAMMOGRAM 3D/2D WITH CAD: 10/15/2024 CLINICAL: Routine screening. Comparison is made to exams dated: 07/28/2023 mammogram, 07/25/2022 mammogram, and 11/15/2020 mammogram - [facility]. The breasts are extremely dense, which lowers the sensitivity of mammography (category d />75% glandular tissue). Current study was also evaluated with a Computer Aided Detection (CAD) system. No significant masses, calcifications, or other findings are seen in either breast. There has been no significant interval change. IMPRESSION: NEGATIVE There is no mammographic evidence of malignancy. A 1 year screening mammogram is recommended. Based on the Tyrer Cuzick model (a risk assessment model) the patient's lifetime risk is 14.5% and her 10 year risk is 3.8%. According to the ACR, ACS, and NCCN guidelines, an annual breast MRI exam along with mammogram is recommended if the patient's lifetime risk is 20% or greater. This exam was interpreted at Station ID: [id number]. NOTE: For mammograms, a report in lay terms will be sent to the patient. Approximately 15% of breast malignancies will not be visualized mammographically. In the management of a palpable breast mass, a negative mammogram must not discourage biopsy of a clinically suspicious lesion. Electronically Signed By: Dakota whitehead/joe:10/15/2024 16:03:19 letter sent: Normal Exam ACR BI-RADS Category 1: Negative
== END ==
PROVIDERS: PCP Family Medicine; Referring Provider Physician Assistant; Visit Provider Physician Assistant
DX: Z12.31 Encounter for screening mammogram for malignant neoplasm of breast (principal); R92.343 Mammographic extreme density, bilateral breasts; E05.90 Thyrotoxicosis, unspecified without thyrotoxic crisis or storm; D56.0 Alpha thalassemia; Z13.220 Encounter for screening for lipoid disorders; Z13.6 Encounter for screening for cardiovascular disorders
CPT/HCPCS: 36415; 77063; 77067; 80053; 80061; 82728; 84443; 85025